=== PATIENT | male | born 2000 | race African-American/Black ===

== ENCOUNTER 2024-06-23 12:44 | Emergency (ER) | payer SELFPAY ==
[~2024-06-23] VITALS: Ht 182.9 cm; Wt 65.8 kg
[2024-06-23] MEDS ORDERED: OLANZAPINE 10 MG VIAL IM ONE (12:53)
[2024-06-23] MEDS: OLANZAPINE 10 MG VIAL IM ONE (12:59)
[2024-06-23 13:18] LABS: BASOPHILS % (AUTO) 0.9 % (0.0-2.0); EOSINOPHILS % (AUTO) 0.1 % (0.0-6.0); HEMATOCRIT 42 % (39-51); LYMPHOCYTES # (AUTO) 1.5 K/uL (0.8-4.8); LYMPHOCYTES % (AUTO) 28.4 % (20.0-44.0); MEAN CORPUSCULAR HEMOGLOBIN 29 PG (26.0-33.0); MEAN CORPUSCULAR HGB CONC 34 g/dl (31.0-36.0); MEAN CORPUSCULAR VOLUME 87 fL (80-96); MONOCYTES # (AUTO) 0.4 K/uL (0.1-1.30); MONOCYTES % (AUTO) 7.4 % (2.0-12.0); NEUTROPHILS # (AUTO) 3.3 K/uL (1.8-8.9); NEUTROPHILS % (AUTO) 63.2 % (43.0-81.0); PLATELET COUNT (AUTO) 264 K/uL (150-450); RED BLOOD CELL COUNT(AUTO) 4.77 MIL/uL (4.5-6.0); RED CELL DISTRIBUTION WIDTH 13.3 % (11.5-15.0); WHITE BLOOD COUNT (AUTO) 5.2 K/uL (4.3-11.0)
[2024-06-23 13:46] LABS: ACETAMINOPHEN <10 ug/ml (10-30); ALANINE AMINOTRANSFERASE 44 U/L (12-78); ALBUMIN 4.1 g/dL (3.4-5.0); ALCOHOL, BLOOD < 3 mg/dL (0-10); ALKALINE PHOSPHATASE 92 U/L (46-116); ASPARTATE AMINOTRANSFERASE 39 U/L (15-37); BILIRUBIN,DIRECT 0.2 mg/dL (0.0-0.2); CALCIUM, SERUM 8.9 mg/dL (8.5-10.1); CARBON DIOXIDE 27 mmol/L (21-32); CHLORIDE 108 mmol/L (98-107); CREATININE 1.2 mg/dL (0.6-1.3); GLUCOSE 85 mg/dL (74-106); POTASSIUM 4.1 mmol/L (3.5-5.1); SALICYLATE 0.6 mg/dL (2.8-20.0); SODIUM SERUM 142 mmol/L (136-145); TOTAL PROTEIN, SERUM 7.6 g/dL (6.4-8.2); UREA NITROGEN, BLOOD 18 mg/dL (7-18)
[2024-06-23 23:07] VITALS: BP 122/80; TEMP 98; O2SAT 98
== END 2024-06-23 23:08 | disposition home or self-care (01) ==
LOC: ER 12:50
DX: F29 Unspecified psychosis not due to a substance or known physiological condition (principal); R44.0 Auditory hallucinations
CPT/HCPCS: 99291; 96372; 85025; 80048; 80076; 36415; 80143; 80320; J3490; G0480

== ENCOUNTER 2024-07-13 07:26 | Emergency (ER) | payer MEDICAID ==
[~2024-07-13] VITALS: Ht 182.9 cm; Wt 68.9 kg
[2024-07-13 07:44] VITALS: BP 138/89; TEMP 98.3; O2SAT 99
== END 2024-07-13 08:41 | disposition home or self-care (01) ==
LOC: ER 07:47
DX: Z00.00 Encounter for general adult medical examination without abnormal findings (principal); J02.9 Acute pharyngitis, unspecified